=== PATIENT | female | born 1980 | race Caucasian/White ===

== ENCOUNTER 2017-11-09 14:03 | Emergency (ER) | payer OTHER, MEDICAID ==
[2017-11-09] MEDS ORDERED: Ondansetron 4 MG/2 ML SDV IVPUSH ONE (14:32)
[2017-11-09] MEDS ORDERED: Pantoprazole 40 MG in Sodium Chloride 0.9% 100 ML IV ONE (14:32)
[2017-11-09] MEDS ORDERED: HYDROmorphone 2 MG/ML SDV IVPUSH ONE (14:37)
--- NOTE | 2017-11-09 14:41 | EDM.PDOC ---
ED HPI GENERAL MEDICAL PROBLEM - General Chief Complaint: Gastrointestinal Problem Stated Complaint: STOMACH PAIN,VOMITING Time Seen by Provider: 11/09/17 14:36 Source of Information: Reports: Patient History Limitations: Reports: No Limitations - History of Present Illness INITIAL COMMENTS - FREE TEXT/NARRATIVE: Complains of generalized abdominal pain and vomiting since 12 noon today after eating a taco salad. Patient is s/p Marie-en-Y 04/2017. Denies hematemesis, no diarrhea or constipation. Onset: Today, Sudden Duration: Hour(s): (2) Location: Reports: Abdomen Quality: Reports: Dull Severity: Moderate Associated Symptoms: Reports: Nausea/Vomiting. Denies: Chest Pain, Shortness of Breath - Related Data Allergies Allergy/AdvReac Type Severity Reaction Status Date / Time No Known Allergies Allergy Verified 11/09/17 14:17 Home Meds: Home Meds Cefuroxime Axetil [Cefuroxime] 500 mg PO BID #14 tablet 11/09/17 [Rx] Multivitamin [Daily Multiple Vitamin] 1 tab PO DAILY 11/09/17 [History] Omeprazole 20 mg PO DAILY #15 cap.sr 11/09/17 [Rx] Ondansetron HCl [Zofran] 4 mg PO Q8H PRN #10 tab 11/09/17 [Rx] Past Medical History - Past Health History Medical/Surgical History: Denies Medical/Surgical History - Past Surgical History GI Surgical History: Reports: Bariatric Procedure (Gastric bypass 04/2017) Social & Family History - Tobacco Use Smoking Status *Q: Never Smoker - Alcohol Use Alcohol Use in Last Twelve Months: No ED ROS GENERAL - Review of Systems Review Of Systems: See Below Constitutional: Reports: No Symptoms HEENT: Reports: No Symptoms Respiratory: Reports: No Symptoms Cardiovascular: Reports: No Symptoms Endocrine: Reports: No Symptoms GI/Abdominal: Reports: Abdominal Pain, Nausea, Vomiting. Denies: Diarrhea : Reports: No Symptoms Musculoskeletal: Reports: No Symptoms Skin: Reports: No Symptoms Neurological: Reports: No Symptoms Psychiatric: Reports: No Symptoms ED EXAM, GI/ABD - Physical Exam Exam: See Below Exam Limited By: No Limitations General Appearance: Alert, WD/WN, Mild Distress Ears: Normal External Exam Nose: Normal Inspection Throat/Mouth: No Airway Compromise Head: Atraumatic, Normocephalic Neck: Full Range of Motion Respiratory/Chest: No Respiratory Distress, Lungs Clear, Normal Breath Sounds Cardiovascular: Regular Rate, Rhythm, No JVD, No Murmur, No Rub GI/Abdominal Exam: Normal Bowel Sounds, Soft, Tender (Moderate upper), Other ( no cva tenderness) (Female) Exam: Deferred Rectal (Female) Exam: Deferred Back Exam: Full Range of Motion Extremities: Normal Inspection, Normal Range of Motion Neurological: Alert, Oriented, Normal Cognition, Normal Gait Psychiatric: Normal Affect, Normal Mood Skin Exam: Warm, Dry, Intact Course - Vital Signs Text/Narrative:: Symptoms improved after Dilaudid and Protonix. Was able to tolerate PO fluids w/ o N/V. Last Recorded V/S: Last Vital Signs Temp 36.4 C 11/09/17 14:15 Pulse 77 11/09/17 14:15 Resp 16 11/09/17 14:15 BP 132/76 11/09/17 14:15 Pulse Ox 100 11/09/17 14:15 - Orders/Labs/Meds Orders: Active Orders 24 hr Category Date Time Status Abdomen Pelvis w Cont [CT] Stat Exams 11/09/17 15:57 Taken CULTURE URINE [RM] Stat Lab 11/09/17 15:39 Received HCG QUALITATIVE,URINE [URCHEM] Stat Lab 11/09/17 14:35 Ordered UA W/MICROSCOPIC [URIN] Stat Lab 11/09/17 15:35 Ordered Diatrizoate Hali/Diatrizoate Na [Gastrografin 37%] Med 11/09/17 18:00 Active 30 ml PO . DIRECTED Sodium Chloride 0.9% [Normal Saline] 1,000 ml Med 11/09/17 14:45 Active IV ASDIRECTED cefTRIAXone [Rocephin] Med 11/09/17 19:00 Active 1,000 mg IV Q24H Medication Orders Ceftriaxone Sodium (Rocephin) 1,000 mg IV Q24H MEY Diatrizoate Meglum/Diatrizoate Sod (Gastrografin 37%) 30 ml PO . DIRECTED MEY Last Admin: 11/09/17 18:15 Dose: 30 ml Sodium Chloride (Normal Saline) 1,000 mls @ 200 mls/hr IV ASDIRECTED MEY Last Admin: 11/09/17 15:24 Dose: 200 mls/hr Labs: Laboratory Tests 11/09/17 11/09/17 11/09/17 Range/Units 14:35 14:50 14:50 WBC 13.9 H (4.5-12.0) X10-3/uL RBC 4.38 (3.23-5.20) x10(6)uL Hgb 13.4 (11.5-15.5) g/dL Hct 39.0 (30.0-51.3) % MCV 89.1 (80-96) fL MCH 30.5 (27.7-33.6) pg MCHC 34.2 (32.2-35.4) g/dL RDW 13.2 (11.5-15.5) % Plt Count 278 (125-369) X10(3)uL MPV 8.1 (7.4-10.4) fL Neut % (Auto) 77.7 (46-82) % Lymph % (Auto) 13.6 (13-37) % [place] % (Auto) 5.7 (4-12) % Eos % (Auto) 2 (1.0-5.0) % Baso % (Auto) 1 (0-2) % Neut # (Auto) 10.8 H (1.6-8.3) # Lymph # (Auto) 1.9 (0.6-5.0) # [place] # (Auto) 0.8 (0.0-1.3) # Eos # (Auto) 0.2 (0.0-0.8) # Baso # (Auto) 0.2 (0.0-0.2) # Sodium 142 (135-145) mmol/L Potassium 4.4 (3.5-5.3) mmol/L Chloride 107 (100-110) mmol/L Carbon Dioxide 27 (21-32) mmol/L BUN 14 (7-18) mg/dL Creatinine 0.9 (0.55-1.02) mg/dL Est Cr Clr Drug Dosing TNP Estimated GFR (MDRD) > 60 (>60) BUN/Creatinine Ratio 15.6 (9-20) Glucose 108 (80-116) mg/dL Calcium 9.2 (8.6-10.2) mg/dL Total Bilirubin 0.6 (0.1-1.3) mg/dL AST 14 (5-25) IU/L ALT 27 (12-36) U/L Alkaline Phosphatase 64 (56-112) IU/L Total Protein 7.1 (6.0-8.0) g/dL Albumin 3.7 (3.5-5.2) g/dL Globulin 3.4 g/dL Albumin/Globulin Ratio 1.1 Amylase 44 (25-115) U/L Urine Color (YELLOW) Urine Appearance (CLEAR) Urine pH (5.0-6.5) Ur Specific Sullivan (1.010-1.025) Urine Protein (NEGATIVE) mg/dL Urine Glucose (UA) (NEGATIVE) mg/dL Urine Ketones (NEGATIVE) mg/dL Urine Occult Blood (NEGATIVE) Urine Nitrite (NEGATIVE) Urine Bilirubin (NEGATIVE) Urine Urobilinogen (NEGATIVE) mg/dL Ur Leukocyte Esterase (NEGATIVE) Urine RBC (0) Urine WBC (0) Ur Squamous Epith Cells (NS,R,O) Urine Bacteria (NS) Hyaline Casts (NS) Urine HCG, Qual Negative (NEGATIVE) 11/09/17 Range/Units 15:35 WBC (4.5-12.0) X10-3/uL RBC (3.23-5.20) x10(6)uL Hgb (11.5-15.5) g/dL Hct (30.0-51.3) % MCV (80-96) fL MCH (27.7-33.6) pg MCHC (32.2-35.4) g/dL RDW (11.5-15.5) % Plt Count (125-369) X10(3)uL MPV (7.4-10.4) fL Neut % (Auto) (46-82) % Lymph % (Auto) (13-37) % [place] % (Auto) (4-12) % Eos % (Auto) (1.0-5.0) % Baso % (Auto) (0-2) % Neut # (Auto) (1.6-8.3) # Lymph # (Auto) (0.6-5.0) # [place] # (Auto) (0.0-1.3) # Eos # (Auto) (0.0-0.8) # Baso # (Auto) (0.0-0.2) # Sodium (135-145) mmol/L Potassium (3.5-5.3) mmol/L Chloride (100-110) mmol/L Carbon Dioxide (21-32) mmol/L BUN (7-18) mg/dL Creatinine (0.55-1.02) mg/dL Est Cr Clr Drug Dosing Estimated GFR (MDRD) (>60) BUN/Creatinine Ratio (9-20) Glucose (80-116) mg/dL Calcium (8.6-10.2) mg/dL Total Bilirubin (0.1-1.3) mg/dL AST (5-25) IU/L ALT (12-36) U/L Alkaline Phosphatase (56-112) IU/L Total Protein (6.0-8.0) g/dL Albumin (3.5-5.2) g/dL Globulin g/dL Albumin/Globulin Ratio Amylase (25-115) U/L Urine Color Yellow (YELLOW) Urine Appearance Clear (CLEAR) Urine pH 5.0 (5.0-6.5) Ur Specific [place] 1.025 (1.010-1.025) Urine Protein Negative (NEGATIVE) mg/dL Urine Glucose (UA) Normal (NEGATIVE) mg/dL Urine Ketones 15 H (NEGATIVE) mg/dL Urine Occult Blood Negative (NEGATIVE) Urine Nitrite Negative (NEGATIVE) Urine Bilirubin Small H (NEGATIVE) Urine Urobilinogen 1 H (NEGATIVE) mg/dL Ur Leukocyte Esterase Large H (NEGATIVE) Urine RBC Not seen (0) Urine WBC 5-10 (0) Ur Squamous Epith Cells Few H (NS,R,O) Urine Bacteria Many H (NS) Hyaline Casts Few H (NS) Urine HCG, Qual (NEGATIVE) Meds: Medications Generic Name Dose Route Start Last Admin Trade Name Freq PRN Reason Stop Dose Admin Ceftriaxone Sodium 1,000 mg 11/09/17 19:00 Rocephin IV Q24H MEY Diatrizoate Meglum/Diatrizoate Sod 30 ml 11/09/17 18:00 11/09/17 18:15 Gastrografin 37% PO 30 ml . DIRECTED MEY Administration Sodium Chloride 1,000 mls @ 200 mls/hr 11/09/17 14:45 11/09/17 15:24 Normal Saline IV 200 mls/hr ASDIRECTED MEY Administration Discontinued Medications Generic Name Dose Route Start Last Admin Trade Name Freq PRN Reason Stop Dose Admin Hydromorphone HCl 1 mg 11/09/17 14:37 11/09/17 15:24 Dilaudid IVPUSH 11/09/17 14:38 1 mg ONETIME ONE Administration Pantoprazole Sodium 40 mg/ 100 mls @ 200 mls/hr 11/09/17 14:32 Sodium Chloride IV 11/09/17 15:01 .BOLUS ONE Iopamidol 150 ml 11/09/17 17:46 11/09/17 18:15 Isovue-370 (76%) IV 11/09/17 17:47 111 ml ONETIME ONE Administration Ondansetron HCl 4 mg 11/09/17 14:32 11/09/17 15:24 Zofran IVPUSH 11/09/17 14:33 4 mg ONETIME ONE Administration Pantoprazole Sodium 40 mg 11/09/17 15:22 11/09/17 15:23 Protonix Iv IVPUSH 11/09/17 15:23 40 mg ONETIME ONE Administration - Radiology Interpretation Free Text/Narrative:: CT Abd/Pelvis with IV and oral contrast: No perforation or obstruction. Distended gallbladder. Gastric remnant slightly distended with air-fluid levels. CT Results Date: 11/09/17 Departure - Departure Time of Disposition: 19:10 Disposition: Home, Self-Care 01 Condition: Good Clinical Impression: Vomiting, Abdominal pain, UTI (urinary tract infection) - Discharge Information Prescriptions: Cefuroxime Axetil [Cefuroxime] 500 mg PO BID #14 tablet Omeprazole 20 mg PO DAILY #15 cap.sr Ondansetron HCl [Zofran] 4 mg PO Q8H PRN #10 tab PRN Reason: Nausea/Vomiting Instructions: Abdominal Pain, Adult, [place], Urinary Tract Infection, Adult, Vomiting, Adult Referrals: PCP,None [Primary Care Provider] - Forms: ED Department Discharge Additional Instructions: Clear fluids x 24 hours. Follow up with your Bariatric surgeon in 1-2 days. Return to the ER if symptoms worsen. - My Orders Last 24 Hours: My Active Orders 11/09/17 14:35 HCG QUALITATIVE,URINE [URCHEM] Stat 11/09/17 14:45 Sodium Chloride 0.9% [Normal Saline] 1,000 ml IV ASDIRECTED 11/09/17 15:35 UA W/MICROSCOPIC [URIN] Stat 11/09/17 15:39 CULTURE URINE [RM] Stat 11/09/17 15:57 Abdomen Pelvis w Cont [CT] Stat 11/09/17 18:00 Diatrizoate Hali/Diatrizoate Na [Gastrografin 37%] 30 ml PO . DIRECTED 11/09/17 19:00 cefTRIAXone [Rocephin] 1,000 mg IV Q24H - Assessment/Plan Last 24 Hours: My Active Orders 11/09/17 14:35 HCG QUALITATIVE,URINE [URCHEM] Stat 11/09/17 14:45 Sodium Chloride 0.9% [Normal Saline] 1,000 ml IV ASDIRECTED 11/09/17 15:35 UA W/MICROSCOPIC [URIN] Stat 11/09/17 15:39 CULTURE URINE [RM] Stat 11/09/17 15:57 Abdomen Pelvis w Cont [CT] Stat 11/09/17 18:00 Diatrizoate Hali/Diatrizoate Na [Gastrografin 37%] 30 ml PO . DIRECTED 11/09/17 19:00 cefTRIAXone [Rocephin] 1,000 mg IV Q24H
[2017-11-09] MEDS ORDERED: Sodium Chloride 0.9% 1,000 ML IV SCH (14:45)
[2017-11-09] MEDS ORDERED: Pantoprazole 40 MG Vial IVPUSH ONE (15:22)
[2017-11-09] MEDS ORDERED: Iopamidol 755 MG/ML 150 ML Bottle IV ONE (17:46)
[2017-11-09] MEDS ORDERED: Diatrizoate Meglumine/Diatrizoate Sodium 37% 30 ML Bottle PO SCH (18:00)
[2017-11-09] MEDS ORDERED: cefTRIAXone 1,000 MG in Sodium Chloride 0.9% 50 ML IV ONE (18:31)
[2017-11-09] MEDS ORDERED: cefTRIAXone 1,000 MG VIAL IV SCH (19:00)
--- NOTE | 2017-11-10 11:52 | CT ---
INDICATION: Upper abdominal pain for four hours. CT ABDOMEN AND CT PELVIS WITH CONTRAST: Spiral 2.5 mm axial sections were obtained through the abdomen and pelvis with minimal oral and IV contrast (111 mL Isovue 370 at 3 mL/second), with sagittal and coronal reconstructions, 2017 - no comparisons. Total exam DLP = 1,123.06 mGy-cm. Lower lung taveras and pleural spaces visualized appear normal. The heart size is normal. No pericardial effusion was suggested. The liver appears normal, as does the gallbladder, which is slightly distended in appearance but otherwise unremarkable. It measured 89 mm maximally. If symptoms are felt to be referable to gallbladder disease, ultrasound is recommended for further evaluation to exclude calculi. Evidence of gastric bypass surgery is noted with the bypassed stomach showing evidence of fluid distending it to a moderate degree. Fluid is noted in the gastric remnant with some air fluid level present. The spleen and pancreas appear to be normal. The common bile duct is normal in caliber in the head of the pancreas. The adrenal glands are normal in appearance, as are the kidneys. No retroperitoneal masses were identified. No evidence of bowel obstruction or free air was seen. What appears to be the appendix on axial images #47 through #52 appear to be normal with no periappendiceal fat stranding of any significance identified. No evidence of bowel obstruction or free air was seen. A small amount of free fluid is suggested in the posterior cul-de-sac, which may be physiologic and should be correlated clinically. A few phleboliths are noted in the lower pelvis. IMPRESSION: 1. Gastric bypass with air fluid levels in the gastric remnant post bypass - correlate clinically as to significance. The possibility that this represents a complicating process, post large meal ingestion, such as tearing of a few sutures, should be correlated clinically. 2. Slightly distended gallbladder, which may be physiologically distended but should be correlated clinically - ultrasound may be helpful in that regard. 3. The appendix is felt to be normal in appearance. 4. Minimal free fluid is noted in the posterior cul-de-sac, likely physiologic. Report was called to Dr. Gaming at 1857 hours on 11/09/2017. [facility]
== END 2017-11-09 19:30 | disposition home or self-care (01) ==
LOC: FB.ED 14:03
DX: N39.0 Urinary tract infection, site not specified (principal); R11.2 Nausea with vomiting, unspecified
CPT/HCPCS: 36415; 74177; 80053; 81001; 81025; 82150; 85025; 87086; 96361; 96374; 96375; 99284; C9113; J0696; J1170; J2405; J7040; Q9963; Q9967

== ENCOUNTER 2021-05-21 21:08 | Emergency (ER) | payer BC, MEDICAID, OTHER ==
--- NOTE | 2021-05-21 21:45 | EDM.PDOC ---
ED HPI GENERAL MEDICAL PROBLEM - General Stated Complaint: COVID SYMPTOMS Time Seen by Provider: 05/21/21 21:45 Source of Information: Reports: Patient History Limitations: Reports: No Limitations - History of Present Illness INITIAL COMMENTS - FREE TEXT/NARRATIVE: 41-year-old female who reports on 1116, she developed nasal congestion and cough and what she felt was "cold type symptoms" and she continued to have worsening cough and was seen and walk-in clinic on 05/15/2021 and was told that she had an upper respiratory infection and if her symptoms persisted she could come back and they might put her on antibiotics. She did not get a call went test at that time and tells me that she did not lose her sense of taste or smell and she did have Covid last year and she states that was the first thing that happened her. She also reports that she felt quite a bit sicker last year when she had Covid. Since 07/15/2020, she has had worsening cough and feeling of congestion and wheezing in her chest and she has had shortness of breath when she tries to lie down and she feels like "I'm drowning" much better and is breathing better when she is sitting up. She does have some body aches and a he adache and she rates the pain is about a 5/10. It is an aching pain and a sore pain. No vomiting. There is been no diarrhea. She has been taking liquids well. There are no other associated signs or symptoms. There are no other modifying factors. Onset: Other (05/12/2021) Duration: Getting Worse Location: Reports: Generalized Quality: Reports: Ache Severity: Moderate Improves with: Reports: None Worsens with: Reports: None Context: Reports: Other (As above.) Associated Symptoms: Reports: No Other Symptoms (Except as above.) Treatments ADMINISTRATIVE REPRESENTATIVE: Reports: Acetaminophen, NSAIDS (Ibuprofen) - Related Data Allergies Allergy/AdvReac Type Severity Reaction Status Date / Time No Known Allergies Allergy Verified 11/09/17 14:17 Home Meds: Home Meds Cefuroxime Axetil [Cefuroxime] 500 mg PO BID #14 tablet 11/09/17 [Rx] Multivitamin [Daily Multiple Vitamin] 1 tab PO DAILY 11/09/17 [History] Omeprazole 20 mg PO DAILY #15 cap.sr 05/17/18 [Rx] Ondansetron HCl [Zofran] 4 mg PO Q8H PRN #10 tab 11/09/17 [Rx] Azithromycin [Zithromax] 250 mg PO DAILY #4 tab 05/21/21 [Rx] predniSONE [Prednisone] 60 mg PO DAILY #12 tablet 05/21/21 [Rx] Past Medical History - Past Health History Medical/Surgical History: Denies Medical/Surgical History - Past Surgical History GI Surgical History: Reports: Bariatric Procedure (Gastric bypass 04/2017) Social & Family History - Tobacco Use Tobacco Use Status *Q: Current Some Day Tobacco User - Alcohol Use Alcohol Use History: No - Living Situation & Occupation Occupation: Employed ED ROS GENERAL - Review of Systems Review Of Systems: See Below Constitutional: Reports: Fever, Malaise. Denies: Chills HEENT: Reports: Other (Nasal congestion.). Denies: Throat Swelling Respiratory: Reports: Shortness of Breath, Wheezing, Cough Cardiovascular: Denies: Chest Pain, Lightheadedness GI/Abdominal: Denies: Diarrhea, Nausea, Vomiting : Denies: Dysuria, Hematuria Musculoskeletal: Reports: Other (Generalized body aches.) Skin: Denies: Diaphoresis, Rash Neurological: Reports: Headache Hematologic/Lymphatic: Denies: Easy Bleeding, Easy Bruising ED EXAM, GENERAL - Physical Exam Exam: See Below Exam Limited By: No Limitations General Appearance: Alert, WD/WN, No Apparent Distress Eye Exam: Bilateral Eye: EOMI, Normal Inspection Ears: Normal External Exam, Hearing Grossly Normal Ear Exam: Bilateral Ear: Auricle Normal Nose: No Blood, Nasal Drainage, Other (Nasal congestion.) Throat/Mouth: Normal Inspection, Normal Oropharynx, Normal Voice, No Airway Compromise Head: Atraumatic, Normocephalic Neck: Normal Inspection, Supple, Non-Tender, Full Range of Motion Respiratory/Chest: No Accessory Muscle Use, Chest Non-Tender, Wheezing. No: Crackles, Rales Cardiovascular: Normal Peripheral Pulses, Regular Rate, Rhythm, No Murmur Peripheral Pulses: 2+: Radial (L), Radial (R) GI/Abdominal: Normal Bowel Sounds, Soft, Non-Tender Back Exam: Normal Inspection, Full Range of Motion Extremities: Normal Inspection, Normal Range of Motion, Non-Tender, No Pedal Edema, Normal Capillary Refill Neurological: Alert, Oriented, CN II-XII Intact, Normal Cognition, No Motor/Sensory Deficits Psychiatric: Normal Affect Skin Exam: Warm, Dry, Intact, Normal Color, No Rash Course - Vital Signs Last Recorded V/S: Last Vital Signs Temp 37.5 C 05/21/21 21:10 Pulse 85 05/21/21 21:10 Resp 16 05/21/21 21:10 BP 132/76 05/21/21 21:10 Pulse Ox 95 05/21/21 21:10 - Orders/Labs/Meds Orders: Active Orders 24 hr Category Date Time Status CORONAVIRUS (COVID19) [facility] 05/21/21 21:58 Received Meds: Medications Discontinued Medications Generic Name Dose Route Start Last Admin Trade Name Freq PRN Reason Stop Dose Admin Azithromycin 500 mg 05/21/21 22:14 05/21/21 22:22 Azithromycin 500 Mg Tab PO 05/21/21 22:15 500 mg ONETIME ONE Administration Prednisone 60 mg 05/21/21 22:14 05/21/21 22:22 Prednisone 20 Mg Tab PO 05/21/21 22:15 60 mg ONETIME ONE Administration - Re-Assessments/Exams Free Text/Narrative Re-Assessment/Exam: 05/21/21 22:12: Patient with bronchitis-type symptoms with some reactive airway disease. She has not lost the sense of taste or smell she has no increased work of breathing. Her blood pressure and pulse are normal as well. We did send testing for Covid. She is having wheezing. I will give her a take-home pack of an albuterol inhaler with a spacer she can use this as needed for her wheezing and cough. In addition, I will place the patient on Zithromax for 5 day course and prednisone for 5 days as well. She has been given her first dose tonight. I'll also give her off work until Monday of next week and hopefully she will have the Covid test back by then. Precautions and reasons for return to the emergency department were discussed with the patient while she was in the emergency department and were detailed in her discharge instructions. Departure - Departure Time of Disposition: 22:23 Disposition: Home, Self-Care 01 Condition: Good Clinical Impression: Bronchitis Reactive airway disease Qualifiers: Asthma severity: moderate Asthma persistence: persistent Asthma complication type: uncomplicated Qualified Code(s): J45.40 - Moderate persistent asthma, uncomplicated - Discharge Information Prescriptions: predniSONE [Prednisone] 60 mg PO DAILY #12 tablet Azithromycin [Zithromax] 250 mg PO DAILY #4 tab Instructions: How to Use a Metered Dose Inhaler, Acute Bronchitis, Adult, [id number] Referrals: Coty Willis, DIRECTOR OF COMMUNITY EDUCATION [Primary Care Provider] - Forms: ED Return to Work/School Form Additional Instructions: You do have wheezing. You appear to have a bronchitis. It is possible this is a Covid infection but it could also be a bacterial bronchitis. We did send a test for Covid. It should be back in 3-4 days. You need to increase your fluid intake. Medication as prescribed (Zithromax, prednisone, albuterol inhaler). Use the spacer that we provided you with the albuterol inhaler so that is more effective. You can continue the Mucinex to help loosen your phlegm so that you can cough it up. No work until 05/25/2021. He will need to quarantine until the Covid test is back. Back to the emergency department for severe weakness, unrelenting vomiting, worsening breathing or any other concerning signs or symptoms. Sepsis Event Note (ED) - Focused Exam Vital Signs: Vital Signs Temp Pulse Resp BP Pulse Ox 05/21/21 21:10 37.5 C 85 16 132/76 95 - My Orders Last 24 Hours: My Active Orders 05/21/21 21:58 CORONAVIRUS (COVID19) [facility] Urgent - Assessment/Plan Last 24 Hours: My Active Orders 05/21/21 21:58 CORONAVIRUS (COVID19) [facility] Urgent
[2021-05-21] MEDS ORDERED: Azithromycin 500 MG Tab PO ONE (22:14)
[2021-05-21] MEDS ORDERED: predniSONE 20 MG Tab PO ONE (22:14)
[2021-05-21] MEDS ORDERED: Albuterol 8 GM Inhaler INH ONE (22:17)
[2021-05-25 18:08] LABS: CORNONAVIRUS (COVID19) CSH-NRL Negative (Negative)
== END 2021-05-21 22:45 | disposition home or self-care (01) ==
LOC: FB.ED 21:08
DX: J45.40 Moderate persistent asthma, uncomplicated (principal); Z79.899 Other long term (current) drug therapy; Z72.0 Tobacco use; Z20.822 Contact with and (suspected) exposure to COVID-19
CPT/HCPCS: 87635; 99284; A9270; J7512; U0003